=== PATIENT | male | born 1980 | race Caucasian/White ===

== ENCOUNTER 2021-07-26 18:34 | Emergency (ER) | payer SELFPAY ==
[~2021-07-26] VITALS: Ht 180.3 cm; Wt 97.0 kg
[2021-07-26] MEDS: IV NORMAL SALINE 1000ML BAG 1,000 ML IV ONE (19:47)
[2021-07-26 19:52] LABS: BASO # 0.1 x10^3/uL (0.0-0.2); BASO % 1 % (0-3); EOS # 0.1 x10^3/uL (0.0-0.7); EOS % 1 % (0-3); HEMATOCRIT 41.2 % (39.0-53.0); HEMOGLOBIN 13.7 g/dL (13.0-17.5); LYMPH # 1.8 x10^3/uL (1.0-4.8); LYMPH % 19 % (24-48); MEAN CORPUSCULAR HEMOGLOBIN 30 pg (25-35); MEAN CORPUSCULAR HGB CONC 33 g/dL (31-37); MEAN CORPUSCULAR VOLUME 89 fL (79-100); MONO # 0.9 x10^3/uL (0.0-1.1); MONO % 9 % (0-9); NEUT # 6.7 x10^3/uL (1.8-7.7); NEUT % 70 % (31-73); PLATELET COUNT 284 x10^3/uL (140-400); RED BLOOD COUNT 4.64 x10^6/uL (4.30-5.70); WHITE BLOOD COUNT 9.5 x10^3/uL (4.0-11.0)
[2021-07-26 20:03] LABS: CALCIUM 9.4 mg/dL (8.5-10.1); CREATININE 1.1 mg/dL (0.7-1.3); GFR 74.1
[2021-07-26 20:07] LABS: ACETAMIN < 2 mcg/ml (10-30); SALIC 4.4 mg/dL (2.8-20.0)
[2021-07-26 20:08] LABS: ETHANOL < 10 mg/dL (0-10)
[2021-07-26 20:09] LABS: ALBUMIN 3.9 g/dL (3.4-5.0); TOTAL BILIRUBIN 0.3 mg/dL (0.2-1.0); TOTAL PROTEIN 7.7 g/dL (6.4-8.2)
[2021-07-26 21:00] VITALS: BP 152/85
[2021-07-26 21:11] LABS: BILIRUBIN,URINE NEGATIVE (NEG); CLARITY,URINE CLEAR; COLOR,URINE YELLOW; NITRITE,URINE NEGATIVE (NEG); PROTEIN,URINE NEGATIVE (NEG-TRACE); UROBILINOGEN,URINE 0.2 mg/dL (0.2 mg/dL)
[2021-07-26 21:18] LABS: BARBITURATES NEG (NEG); BENZODIAZEPINES NEG (NEG); CANNABINOIDS NEG (NEG); COCAINE NEG (NEG); METHADONE NEG (NEG); OPIATES NEG (NEG); PHENCYCLIDINE NEG (NEG)
[2021-07-26 21:20] LABS: AMPHETAMINE/METHAMPHETAMINE NEG (NEG)
[2021-07-26 21:22] LABS: BACTERIA,URINE 0 /HPF (0-FEW); RBC,URINE 0 /HPF (0-2); WBC,URINE 0 /HPF (0-4)
--- NOTE | 2021-07-26 21:38 | PHYS DOC ---
Past Medical History Additional Past Medical Histor: POOR HISTORIAN Past Surgical History: No Surgical History Smoking Status: Current Every Day Smoker Alcohol Use: Occasionally Additional Information: "I JUST HAD A DROP TODAY." Social History Narrative: "I DON'T DO THE HARD STUFF." General Adult EDM: Chief Complaint: DEHYDRATION HPI: HPI: Patient is a 41 year old male here with multiple complaints. He is a very poor historian. He reports that he feels he is dehydrated because he has been outside working for the past few days. He denies nausea or vomiting, Diaz pain, diarrhea constipation. He reports he is eating and drinking well. He denies chest pain, dyspnea, cough, headache, dizziness, syncope, numbness tingling or weakness. He apparently was recently at [facility] and was released before he was supposed to have been. He has a history of schizophrenia, and from what I can ascertain, his parents are his power of litigation attorney associate and guardians, and apparently they were pleased with him being released from [facility] before scheduled time to do so. He reportedly currently has nowhere to go at this time. He reports he is access to food and drink and has access to care home. He is asking for food and drink currently. He requests IV fluids because he feels he is deh ydrated. He reports he has been urinating normally. He denies SI or HI symptoms. He denies any current use of alcohol or illicit drugs. Review of Systems: Review of Systems: Constitutional: Denies fever or chills. [] Eyes: Denies change in visual acuity. [] HENT: Denies nasal congestion or sore throat. [] Respiratory: Denies cough or shortness of breath. [] Cardiovascular: Denies chest pain or edema. [] GI: Denies abdominal pain, nausea, vomiting, bloody stools or diarrhea. [] : Denies urinary symptoms. Musculoskeletal: Denies back pain or joint pain. [] Integument: Denies rash. [] Neurologic: Denies headache, focal weakness or sensory changes. [] Psychiatric: Chronic mood disturbance and chronic psychotic disorder. Denies SI or HI. Denies current hallucinations. No reported recent violent or aggress julia behavior, per the patient. Heart Score: C/O Chest Pain: No Risk Factors: Risk Factors: DM, Current or recent (<one month) smoker, HTN, HLP, family history of CAD, obesity. Risk Scores: Score 0 - 3: 2.5% MACE over next 6 weeks - Discharge Home Score 4 - 6: 20.3% MACE over next 6 weeks - Admit for Clinical Observation Score 7 - 10: 72.7% MACE over next 6 weeks - Early Invasive Strategies Current Medications: Current Medications Medications (Trade) Dose Ordered Sig/Roque Start Time Stop Time Status Last Admin Dose Admin Sodium Chloride 1,000 ml @ 1,000 mls/hr 1X ONCE 07/26/21 19:30 07/26/21 20:29 DC 07/26/21 19:47 1,000 MLS/HR Allergies: Allergies: Allergies Coded Allergies Type Severity Reaction Last Updated Verified No Known Drug Allergies 07/26/21 No Physical Exam: PE: Constitutional: Well developed, well nourished, no acute distress, non-toxic appearance. Smiling, resting comfortably. HENT: Normocephalic, atraumatic, bilateral external ears normal, oropharynx moist, no oral exudates, nose normal. [] Eyes: PERRL, EOMI, conjunctiva normal, nonicteric, no discharge. [] Neck: Normal range of motion, no tenderness, supple, no stridor. [] Cardiovascular:Heart rate regular rhythm, no murmur [] Lungs & Thorax: Bilateral breath sounds clear to auscultation [] Abdomen: Bowel sounds normal, soft, no tenderness, no masses, no pulsatile masses. [] Skin: Warm, dry, no erythema, no rash. [] Back: No tenderness, no CVA tenderness. [] Extremities: No tenderness, no cyanosis, no clubbing, ROM intact, no edema. [] Neurologic: Alert and oriented X 3, normal motor function, normal sensory function, no focal deficits noted. [] Psychologic: Affect is slightly bizarre but pleasant. He is cooperative. Denies SI or HI. Current Patient Data: Labs: Laboratory Tests Test 07/26/21 19:42 07/26/21 21:05 White Blood Count 9.5 x10^3/uL (4.0-11.0) Red Blood Count 4.64 x10^6/uL (4.30-5.70) Hemoglobin 13.7 g/dL (13.0-17.5) Hematocrit 41.2 % (39.0-53.0) Mean Corpuscular Volume 89 fL (79-100) Mean Corpuscular Hemoglobin 30 pg (25-35) Mean Corpuscular Hemoglobin Concent 33 g/dL (31-37) Red Cell Distribution Width 15.0 % (11.5-14.5) H Platelet Count 284 x10^3/uL (140-400) Neutrophils (%) (Auto) 70 % (31-73) Lymphocytes (%) (Auto) 19 % (24-48) L Monocytes (%) (Auto) 9 % (0-9) Eosinophils (%) (Auto) 1 % (0-3) Basophils (%) (Auto) 1 % (0-3) Neutrophils # (Auto) 6.7 x10^3/uL (1.8-7.7) Lymphocytes # (Auto) 1.8 x10^3/uL (1.0-4.8) Monocytes # (Auto) 0.9 x10^3/uL (0.0-1.1) Eosinophils # (Auto) 0.1 x10^3/uL (0.0-0.7) Basophils # (Auto) 0.1 x10^3/uL (0.0-0.2) Sodium Level 141 mmol/L (136-145) Potassium Level 4.0 mmol/L (3.5-5.1) Chloride Level 103 mmol/L (98-107) Carbon Dioxide Level 29 mmol/L (21-32) Anion Gap 9 (6-14) Blood Urea Nitrogen 11 mg/dL (8-26) Creatinine 1.1 mg/dL (0.7-1.3) Estimated GFR (Cockcroft-Gault) 74.1 BUN/Creatinine Ratio 10 (6-20) Glucose Level 85 mg/dL (70-99) Calcium Level 9.4 mg/dL (8.5-10.1) Magnesium Level 2.0 mg/dL (1.8-2.4) Total Bilirubin 0.3 mg/dL (0.2-1.0) Aspartate Amino Transferase (AST) 26 U/L (15-37) Alanine Aminotransferase (ALT) 46 U/L (16-63) Alkaline Phosphatase 77 U/L (46-116) Creatine Kinase 226 U/L (39-308) Total Protein 7.7 g/dL (6.4-8.2) Albumin 3.9 g/dL (3.4-5.0) Albumin/Globulin Ratio 1.0 (1.0-1.7) Salicylates Level 4.4 mg/dL (2.8-20.0) Salicylate Last Dose Date Unknown Salicylate Last Dose Time Unknown Acetaminophen Level < 2 mcg/ml (10-30) L Acetaminophen Last Dose Date Unknown Acetaminophen Last Dose Time Unknown Ethyl Alcohol Level < 10 mg/dL (0-10) Urine Collection Type Unknown Urine Color Yellow Urine Clarity Clear Urine pH 7.0 (<5.0-8.0) Urine Specific [place] 1.020 (1.000-1.030) Urine Protein Negative mg/dL (NEG-TRACE) Urine Glucose (UA) Negative mg/dL (NEG) Urine Ketones (Stick) Negative mg/dL (NEG) Urine Blood Negative (NEG) Urine Nitrite Negative (NEG) Urine Bilirubin Negative (NEG) Urine Urobilinogen Dipstick 0.2 mg/dL (0.2 mg/dL) Urine Leukocyte Esterase Negative (NEG) Urine RBC 0 /HPF (0-2) Urine WBC 0 /HPF (0-4) Urine Squamous Epithelial Cells Occ /LPF Urine Bacteria 0 /HPF (0-FEW) Urine Mucus Mod /LPF Urine Opiates Screen Neg (NEG) Urine Methadone Screen Neg (NEG) Urine Barbiturates Neg (NEG) Urine Phencyclidine Screen Neg (NEG) Urine Amphetamine/Methamphetamine Neg (NEG) Urine Benzodiazepines Screen Neg (NEG) Urine Cocaine Screen Neg (NEG) Urine Cannabinoids Screen Neg (NEG) Urine Ethyl Alcohol Neg (NEG) Laboratory Tests 07/26/21 19:42 Laboratory Tests 07/26/21 19:42 Vital Signs: Vital Signs Date Time Temp Pulse Resp B/P (MAP) Pulse Ox O2 Delivery O2 Flow Rate FiO2 07/26/21 21:00 98 152/85 (107) 100 Room Air 07/26/21 19:20 98.8 12 98.8 EKG: EKG: [] Radiology/Procedures: Radiology/Procedures: [] Course & Med Decision Making: Course & Med Decision Making Pertinent Labs and Imaging studies reviewed. (See chart for details) Patient is given IV fluids. He appears clinically well. No clinical evidence of dehydration or other acute emergency or life-threatening condition noted. He was seen by the mental health counselor. He is not able to return to [facility] today, though he may try again tomorrow. The patient reports that he has been staying in hotels, and he has access to some friends. He is reportedly not welcome back home at his parents house. No indication for any further ED work- up or invasive exams. He denies SI or HI. He is very pleasant cooperative. There is no indication for emergency mental health hospitalization or placement. Return precautions are given. Dragon Disclaimer: Dragon Disclaimer: This electronic medical record was generated, in whole or in part, using a voice recognition dictation system. Departure Departure Impression: Primary Impression: Schizophrenia Condition: STABLE Referrals: JAZMYNE HANCOCK MD (PCP) Patient Instructions: Schizophrenia Additional Instructions: Please return for any emergency medical condition, such as acute injury or trauma, if you experience any severe pain, vomiting, dehydration, fever of 100.4 or higher, difficulty breathing or other concerns. Meanwhile, please contact your primary care physician and psychiatrist for further evaluation and treatment. LALY ROQUE DO Jul 26, 2021 21:38
== END 2021-07-27 00:40 | disposition home or self-care (01) ==
LOC: ER 18:34
DX: F20.9 Schizophrenia, unspecified (principal); F17.200 Nicotine dependence, unspecified, uncomplicated
CPT/HCPCS: 36415; 80053; 80307; 80329; 81001; 82550; 83735; 85025; 96360; 99285; G0480; J7030